=== PATIENT | female | born 1975 | race Caucasian/White ===

== ENCOUNTER 2017-06-09 18:45 | Emergency (ER) | payer BC, OTHER ==
[~2017-06-09] VITALS: Ht 167.6 cm; Wt 62.1 kg
[2017-06-09 18:52] VITALS: TEMP 36.6; Ht 167.6 cm; Wt 62.1 kg
[2017-06-09 19:37] LABS: BASO % 0.4 %; BASO ABS # 0.01 K/uL (0-0.2); COMPLETE YES; HEMATOCRIT 36.7 % (37-47); IG% 0.4 %; LYMPH % 21.2 %; LYMPH ABS # 0.57 K/uL (1.2-3.4); MEAN CELL VOLUME 91.1 fL (80-100); MEAN PLATELET VOLUME 9.6 fL (7.4-10.4); MONO % 19.7 %; NEUT % 58.3 %; PLATELET COUNT 321 K/uL (130-400); RED BLOOD COUNT 4.03 M/uL (4.2-5.4); WHITE BLOOD COUNT 2.69 K/uL (4.8-10.8)
--- NOTE | 2017-06-09 19:42 | DIAGNOSTIC IMAGING REPORT ---
CHEST 2 VIEWS ROUTINE CLINICAL HISTORY: Cough, febrile COMPARISON STUDY: No previous studies for comparison. FINDINGS: The cardiac and mediastinal contours are normal. There is no evidence of focal pulmonary consolidation. There is no evidence of failure. No pleural effusions are visualized.[ IMPRESSION: No active disease in the chest. Electronically signed by: Zana Hall M.D. 06/09/2017 7:41 PM Dictated Date/Time: 06/09/2017 7:41 PM
--- NOTE | 2017-06-09 19:48 | EMERGENCY ROOM VISIT NOTE ---
History First contact with patient: 18:56 Chief Complaint: SINUS CONGESTION/PRESSURE Stated Complaint: SINUS/EAR INFEC, FEVER,CHILLS,SWEATS Nursing Triage Summary: Pt. reports cold symptoms for the last month. She has been being treated for sinus infection and ear infection with doxycycline, but symptoms have not been improving. Reports having night sweats and chills last night. History of Present Illness The patient is a 42 year old female who presents to the Emergency Room via private vehicle with complaints of "sinus/ear infection, fever, chills, sweats" . The patient states that for about a month now she has had sinus congestion and left ear pain. She states that she was started on doxycycline on Saturday feeling much better until yesterday she started not feel well after going shopping. She notes now she has worsening cough, headache, and is concerned she may have pneumonia. She also has had fever, chills and sweats. Her temperature this morning when she awoke was 101.5F. She denies chance of . Review of Systems A complete 10-point Review of Systems was discussed with the patient, with pertinent positives and negatives listed in the History of Present Illness. All remaining Review of Systems questions can be considered negative unless otherwise specified. Past Medical/Surgical History Stomach ulcer Family History No pertinent. Social History Smoking Status: Never Smoker Patient lives locally. Current/Historical Medications Unable to Obtain Active Prescriptions or Reported Meds Physical Exam Vital Signs Date Time Temp Pulse Resp B/P (MAP) Pulse Ox O2 Delivery O2 Flow Rate FiO2 06/09/17 20:51 57 18 123/84 100 Room Air 06/09/17 18:52 36.6 86 18 117/60 97 Room Air Physical Exam VITAL SIGNS - Vital signs and nursing notes were reviewed. Stable. Afebrile. GENERAL -42-year-old female appearing her stated age who is in no acute distress. Nontoxic in appearance. Communicates well with provider and answers questions appropriately. SKIN - Without rashes. No petechial rashes. HEAD - NC/AT. EYES - PERRL with EOMI bilaterally. Sclera anicteric. EARS - No deformities of external structures noted on gross examination bilaterally. No pain elicited with palpation of the tragus bilaterally. External auditory canals without discharge or otorrhea. Tympanic membranes pearly baltazar without retraction or bulging. No fluid or purulent material visualized behind the TM. Handle of malleus, umbo, cone of light, pars tensa/ flaccid all easily visualized. Left ear is slightly erythematous but no evidence of infection. NOSE - Midline and without cyanosis. No epistaxis or purulent drainage noted. MOUTH/OROPHARYNX - Without perioral cyanosis. NECK - Neck with FROM. No meningismus. LUNGS - Chest wall symmetric without accessory muscle use, intercostals retractions, or central cyanosis. Normal vesicular breath sounds CTA B/L. No wheezes, rales, or rhonchi appreciated. Questionable slight wheeze in the left lung. CARDIAC - RRR with S1/S2. No murmur, rubs, or gallops appreciated. EXTREMITIES - No clubbing or peripheral cyanosis. No pretibial edema present. + 5/5 strength noted in UE/LE bilaterally. NEUROLOGIC - Cranial nerves II through XII grossly intact. Sensory intact to light touch throughout. Medical Decision & Procedures ER Provider Diagnostic Interpretation: CHEST 2 VIEWS ROUTINE CLINICAL HISTORY: Cough, febrile COMPARISON STUDY: No previous studies for comparison. FINDINGS: The cardiac and mediastinal contours are normal. There is no evidence of focal pulmonary consolidation. There is no evidence of failure. No pleural effusions are visualized.[ IMPRESSION: No active disease in the chest. Electronically signed by: Zana Hall M.D. 06/09/2017 7:41 PM Dictated Date/Time: 06/09/2017 7:41 PM Laboratory Results 06/09/17 19:25 Red Blood Count 4.03, Mean Corpuscular Volume 91.1, Mean Corpuscular Hemoglobin 30.0, Mean Corpuscular Hemoglobin Concent 33.0, Mean Platelet Volume 9.6, Neutrophils (%) (Auto) 58.3, Lymphocytes (%) (Auto) 21.2, Monocytes (%) (Auto) 19.7, Eosinophils (%) (Auto) 0.0, Basophils (%) (Auto) 0.4, Neutrophils # (Auto ) 1.57, Lymphocytes # (Auto) 0.57, Monocytes # (Auto) 0.53, Eosinophils # (Auto ) 0.00, Basophils # (Auto) 0.01 06/09/17 19:25 Test 06/09/17 19:20 06/09/17 19:25 06/09/17 19:54 Influenza Type A Antigen POS for Influ A (NEG) Influenza Type B Antigen Neg for Influ B (NEG) White Blood Count 2.69 K/uL (4.8-10.8) Red Blood Count 4.03 M/uL (4.2-5.4) Hemoglobin 12.1 g/dL (12.0-16.0) Hematocrit 36.7 % (37-47) Mean Corpuscular Volume 91.1 fL (80-100) Mean Corpuscular Hemoglobin 30.0 pg (25-34) Mean Corpuscular Hemoglobin Concent 33.0 g/dl (32-36) Platelet Count 321 K/uL (130-400) Mean Platelet Volume 9.6 fL (7.4-10.4) Neutrophils (%) (Auto) 58.3 % Lymphocytes (%) (Auto) 21.2 % Monocytes (%) (Auto) 19.7 % Eosinophils (%) (Auto) 0.0 % Basophils (%) (Auto) 0.4 % Neutrophils # (Auto) 1.57 K/uL (1.4-6.5) Lymphocytes # (Auto) 0.57 K/uL (1.2-3.4) Monocytes # (Auto) 0.53 K/uL (0.11-0.59) Eosinophils # (Auto) 0.00 K/uL (0-0.5) Basophils # (Auto) 0.01 K/uL (0-0.2) RDW Standard Deviation 42.3 fL (36.4-46.3) RDW Coefficient of Variation 12.6 % (11.5-14.5) Immature Granulocyte % (Auto) 0.4 % Immature Granulocyte # (Auto) 0.01 K/uL (0.00-0.02) Anion Gap 4.0 mmol/L (3-11) Est Creatinine Clear Calc Drug Dose 67.9 ml/min Estimated GFR () 79.9 Estimated GFR (Non- 69.0 BUN/Creatinine Ratio 11.2 (10-20) Calcium Level 9.3 mg/dl (8.5-10.1) Total Bilirubin 0.2 mg/dl (0.2-1) Aspartate Amino Transf (AST/SGOT) 36 U/L (15-37) Alanine Aminotransferase (ALT/SGPT) 39 U/L (12-78) Alkaline Phosphatase 49 U/L (45-117) Total Protein 8.1 gm/dl (6.4-8.2) Albumin 4.1 gm/dl (3.4-5.0) Globulin 4.0 gm/dl (2.5-4.0) Albumin/Globulin Ratio 1.0 (0.9-2) Urine Color YELLOW Urine Appearance CLEAR (CLEAR) Urine pH 7.0 (4.5-7.5) Urine Specific [place] 1.006 (1.000-1.030) Urine Protein NEG (NEG) Urine Glucose (UA) NEG (NEG) Urine Ketones NEG (NEG) Urine Occult Blood 1+ (NEG) Urine Nitrite NEG (NEG) Urine Bilirubin NEG (NEG) Urine Urobilinogen NEG (NEG) Urine Leukocyte Esterase NEG (NEG) Urine WBC (Auto) 0 /hpf (0-5) Urine RBC (Auto) 0-4 /hpf (0-4) Urine Hyaline Casts (Auto) 1-5 /lpf (0-5) Urine Epithelial Cells (Auto) 0-5 /lpf (0-5) Urine Bacteria (Auto) NEG (NEG) Urine Test NEG (NEG) Medical Decision Patient was seen and evaluated as above. She presents to us today with sinus/ ear congestion, fever chills and sweats. She's been on doxycycline. IV access was initiated, and the above workup was performed. Patient was found to be flu positive. I suspect that she likely had a sinus infection which was clearing up with the doxycycline however when she was out in public recent was shopping I suspect she acquired the flu which I believe is separate from her illness of which she is being treated with doxycycline for. Her white blood cell count is low I believe secondary to the viral illness. There is no evidence of metabolic failure. No concerning anemia. Potassium slightly low at 132. Kidney function appropriate. Urine negative. Urine test negative. Chest x-ray negative. I believe the patient is stable for outpatient management. She looks nontoxic. Patient was educated upon management, educated upon worrisome symptoms which to return, had questions as per the discharge, and was discharged home in good condition. In evaluation treatment this patient following differential diagnoses were entertained: Influenza, meningitis, encephalitis, viral URI, otitis media, among others. Impression Primary Impression: Influenza Departure Information Dispostion Home / Self-Care Condition GOOD Prescriptions Unable to Obtain Active Prescriptions or Reported Meds Referrals No Doctor, Assigned (PCP) Patient Instructions My [facility] Additional Instructions You were seen in the emergency department for fevers, chills, congestion. Chest x-ray shows no pneumonia. Your blood work reveals influenza. I recommend rest, and an adequate fluid intake. This is contagious. Please follow-up with your family doctor for recheck if you're not improving within 10 days. Please return with any new/concerning symptoms.
[2017-06-09 19:58] LABS: BUN/CREATININE RATIO 11.2 (10-20); CALCIUM 9.3 mg/dl (8.5-10.1); POTASSIUM 4.1 mmol/L (3.5-5.1)
[2017-06-09 20:19] LABS: URINE APPEARANCE CLEAR (CLEAR); URINE BILIRUBIN NEG (NEG); URINE COLOR YELLOW; URINE EPITHELIAL CELL AUTO 0-5 /lpf (0-5); URINE NITRITE NEG (NEG); URINE SPECIFIC GRAVITY 1.006 (1.000-1.030); UROBILINOGEN NEG (NEG); ZZUR CULT IF INDIC CLEAN CATCH NO
[2017-06-09 20:21] LABS: MANUAL MICROSCOPIC REQUIRED? NO; REVIEW REQ? NO
[2017-06-09 20:51] VITALS: BP 123/84; PULSE 57; O2SAT 100
== END 2017-06-09 20:55 | disposition home or self-care (01) ==
LOC: C.EDB 18:46 → C.EDA 20:55
DX: J11.1 Influenza due to unidentified influenza virus with other respiratory manifestations (principal); R05 Cough; J32.9 Chronic sinusitis, unspecified; H66.92 Otitis media, unspecified, left ear

== ENCOUNTER 2017-06-13 18:20 | Emergency (ER) | payer BC ==
[~2017-06-13] VITALS: Ht 170.2 cm; Wt 58.4 kg
[2017-06-13 18:23] VITALS: Ht 170.2 cm; Wt 58.4 kg
[2017-06-13] MEDS ORDERED: KETOROLAC TROMETHAMINE 30 MG/ML VIAL IV STA (18:36)
[2017-06-13] MEDS ORDERED: SODIUM CHLORIDE 0.9% 1000ML 1,000 ML IV STA (18:36)
[2017-06-13] MEDS ORDERED: ONDANSETRON INJ 2 MG/ML 2 ML VIAL IV STA (18:40)
--- NOTE | 2017-06-13 19:03 | DIAGNOSTIC IMAGING REPORT ---
CHEST ONE VIEW PORTABLE CLINICAL HISTORY: 42 years-old Female presenting with Continued cough and headache. TECHNIQUE: Portable upright AP view of the chest was obtained. COMPARISON: 06/09/2017. FINDINGS: Cardiomediastinal silhouette normal. Lungs and pleural spaces clear. Osseous structures normal. Upper abdomen normal. IMPRESSION: 1. No acute cardiopulmonary disease. Electronically signed by: Edgardo Tran M.D. 06/13/2017 7:01 PM Dictated Date/Time: 06/13/2017 7:00 PM
[2017-06-13 19:07] LABS: BASO % 0.3 %; BASO ABS # 0.01 K/uL (0-0.2); HEMATOCRIT 36.7 % (37-47); HEMOGLOBIN 12.3 g/dL (12.0-16.0); LYMPH % 28.5 %; LYMPH ABS # 1.09 K/uL (1.2-3.4); MEAN CELL VOLUME 90.2 fL (80-100); MEAN CORPUSCULAR HEMOGLOBIN 30.2 pg (25-34); MEAN CORPUSCULAR HGB CONC 33.5 g/dl (32-36); MEAN PLATELET VOLUME 9.4 fL (7.4-10.4); MONO % 13.3 %; MONO ABS # 0.51 K/uL (0.11-0.59); NEUT % 57.9 %; NEUT ABS # 2.22 K/uL (1.4-6.5); PLATELET COUNT 235 K/uL (130-400); RED CELL DISTRIBUTION WIDTH CV 12.7 % (11.5-14.5); RED CELL DISTRIBUTION WIDTH SD 42.1 fL (36.4-46.3); WHITE BLOOD COUNT 3.83 K/uL (4.8-10.8)
[2017-06-13] MEDS ORDERED: VNTHFA/IN INH (19:24)
[2017-06-13] MEDS ORDERED: GUAI1TAB55 PO (19:24)
[2017-06-13 19:27] LABS: ALBUMIN 3.9 gm/dl (3.4-5.0); CALCIUM 9.1 mg/dl (8.5-10.1); CREATININE 0.71 mg/dl (0.60-1.20); POTASSIUM 3.7 mmol/L (3.5-5.1)
[2017-06-13 19:30] LABS: TOTAL PROTEIN 7.8 gm/dl (6.4-8.2)
--- NOTE | 2017-06-13 20:44 | DIAGNOSTIC IMAGING REPORT ---
SINUSES-MAXILLOFACIAL W/O CLINICAL HISTORY: 42 years-old Female presenting with sinus congestion x 6 weeks. TECHNIQUE: Multidetector CT of the sinuses was performed without the use of intravenous contrast. IV contrast: None. A dose lowering technique was used consistent with the principles of ALARA (as low as reasonably achievable). COMPARISON: None. CT DOSE (mGy.cm): The estimated cumulative dose is 484.33 mGy.cm. 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 [address] mucosal thickening in the left maxillary sinus with an air-fluid level. Aerated secretions in the left anterior ethmoid air cells. Layering fluid also noted in the left sphenoid sinus. Fluid also noted in the left mastoid air cells. No evidence of ostial lysis of the mastoid air cell septations. The left ostiomeatal unit is obstructed by aerated secretions. Similarly the left nasofrontal ethmoidal recess is obstructed by secretions and total thickening. Right ostiomeatal unit and nasal frontoethmoidal recess patent. No dehiscence of the bony optic canals. No sclerosis of the maxillary sinus harris to suggest chronic sinusitis. No periapical lucency at the maxillary teeth. Orbits normal. Mild rightward deviation of the bony nasal septum. Limited intracranial evaluation within normal limits. IMPRESSION: Findings consistent with acute sinusitis of the left maxillary and sphenoid sinuses and left ethmoid air cells. Fluid noted in the left mastoid air cells. No evidence of chronic sinusitis. Electronically signed by: Edgardo Tran M.D. 06/13/2017 8:43 PM Dictated Date/Time: 06/13/2017 8:38 PM
[2017-06-13] MEDS ORDERED: LEVOFLOXACIN 500 MG TAB PO STA (21:00)
[2017-06-13] MEDS ORDERED: LEVO-366 PO (21:02)
[2017-06-13] MEDS ORDERED: ONDANSETRON HOME PACK 4MG OD TAB PO STA (21:03)
[2017-06-13] MEDS ORDERED: LEVOFLOXACIN 250 MG TAB ONE (21:04)
[2017-06-13] MEDS ORDERED: ONDA4TAB10 SL (21:05)
--- NOTE | 2017-06-13 21:05 | EMERGENCY ROOM VISIT NOTE ---
History First contact with patient: 18:27 Chief Complaint: NAUSEA Stated Complaint: NAUSEA Nursing Triage Summary: see triage notes History of Present Illness The patient is a 42 year old female who presents to the Emergency Room via private vehicle with complaints of "nausea". The patient states that she has had a sinus infection for 6 weeks, and is getting worse. She states that she was seen here the day before and diagnosed with the flu. She states that now the nausea is persistent and cannot keep liquids down. She also notes that she has a headache. She called the nurse line for her family practice who referred her here. She states that she has been on doxycycline but recently discontinued this secondary to the stomach upset. She notes that her headache currently is feeling a little bit better. She feels as though she eats food or drinks water she feels nauseous but has not vomited. Review of Systems A complete 10-point Review of Systems was discussed with the patient, with pertinent positives and negatives listed in the History of Present Illness. All remaining Review of Systems questions can be considered negative unless otherwise specified. Past Medical/Surgical History Influenza Family History Noncontributory Social History Smoking Status: Never Smoker Patient lives locally. Current/Historical Medications Scheduled Levofloxacin (Levaquin), 500 MG PO DAILY Ondasetron Odt (Zofran Odt), 4 MG SL Q6H Scheduled PRN Albuterol Hfa (Ventolin Hfa), 2 PUFFS INH Q6H PRN for SOB/Wheezing Guaifenesin Ext Rel (Mucinex Ext Rel), 600 MG PO Q12 PRN for CONGESTION Physical Exam Vital Signs Date Time Temp Pulse Resp B/P (MAP) Pulse Ox O2 Delivery O2 Flow Rate FiO2 06/13/17 21:12 36.8 65 16 112/74 100 06/13/17 21:11 65 16 112/74 100 Room Air 06/13/17 18:23 36.8 64 16 112/65 100 Room Air Physical Exam VITAL SIGNS - Vital signs and nursing notes were reviewed. Stable. Afebrile. GENERAL -42-year-old female appearing her stated age who is in no acute distress. Communicates well with provider and answers questions appropriately. SKIN - Without rashes. No petechial rashes. HEAD - NC/AT. EYES - PERRL with EOMI bilaterally. Sclera anicteric. No hyphema. EARS - No deformities of external structures noted on gross examination bilaterally. No pain elicited with palpation of the tragus bilaterally. External auditory canals without discharge or otorrhea. Tympanic membranes pearly baltazar without retraction or bulging. No fluid or purulent material visualized behind the TM. Handle of malleus, umbo, cone of light, pars tensa/ flaccid all easily visualized. NOSE - Midline and without cyanosis. No epistaxis or purulent drainage noted. MOUTH/OROPHARYNX - Without perioral cyanosis. NECK - Neck with FROM. No meningismus. No nuchal rigidity. LUNGS - Chest wall symmetric without accessory muscle use, intercostals retractions, or central cyanosis. Normal vesicular breath sounds CTA B/L. No wheezes, rales, or rhonchi appreciated. CARDIAC - RRR with S1/S2. No murmur, rubs, or gallops appreciated. NEUROLOGIC - Cranial nerves II through XII grossly intact. Sensory intact to light touch throughout. PSYCH - A&O, and cooperates fully with examiner. Pt is very pleasant and interacts well with examiner. Medical Decision & Procedures ER Provider Diagnostic Interpretation: CHEST ONE VIEW PORTABLE CLINICAL HISTORY: 42 years-old Female presenting with Continued cough and headache. TECHNIQUE: Portable upright AP view of the chest was obtained. COMPARISON: 06/09/2017. FINDINGS: Cardiomediastinal silhouette normal. Lungs and pleural spaces clear. Osseous structures normal. Upper abdomen normal. IMPRESSION: 1. No acute cardiopulmonary disease. Electronically signed by: Edgardo Tran M.D. 06/13/2017 7:01 PM Dictated Date/Time: 06/13/2017 7:00 PM SINUSES-MAXILLOFACIAL W/O CLINICAL HISTORY: 42 years-old Female presenting with sinus congestion x 6 weeks. TECHNIQUE: Multidetector CT of the sinuses was performed without the use of intravenous contrast. IV contrast: None. A dose lowering technique was used consistent with the principles of ALARA (as low as reasonably achievable). COMPARISON: None. CT DOSE (mGy.cm): The estimated cumulative dose is 484.33 mGy.cm. 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 [address] mucosal thickening in the left maxillary sinus with an air-fluid level. Aerated secretions in the left anterior ethmoid air cells. Layering fluid also noted in the left sphenoid sinus. Fluid also noted in the left mastoid air cells. No evidence of ostial lysis of the mastoid air cell septations. The left ostiomeatal unit is obstructed by aerated secretions. Similarly the left nasofrontal ethmoidal recess is obstructed by secretions and total thickening. Right ostiomeatal unit and nasal frontoethmoidal recess patent. No dehiscence of the bony optic canals. No sclerosis of the maxillary sinus harris to suggest chronic sinusitis. No periapical lucency at the maxillary teeth. Orbits normal. Mild rightward deviation of the bony nasal septum. Limited intracranial evaluation within normal limits. IMPRESSION: Findings consistent with acute sinusitis of the left maxillary and sphenoid sinuses and left ethmoid air cells. Fluid noted in the left mastoid air cells. No evidence of chronic sinusitis. Electronically signed by: Edgardo Tran M.D. 06/13/2017 8:43 PM Dictated Date/Time: 06/13/2017 8:38 PM Laboratory Results 06/13/17 19:00 Red Blood Count 4.07, Mean Corpuscular Volume 90.2, Mean Corpuscular Hemoglobin 30.2, Mean Corpuscular Hemoglobin Concent 33.5, Mean Platelet Volume 9.4, Neutrophils (%) (Auto) 57.9, Lymphocytes (%) (Auto) 28.5, Monocytes (%) (Auto) 13.3, Eosinophils (%) (Auto) 0.0, Basophils (%) (Auto) 0.3, Neutrophils # (Auto ) 2.22, Lymphocytes # (Auto) 1.09, Monocytes # (Auto) 0.51, Eosinophils # (Auto ) 0.00, Basophils # (Auto) 0.01 06/13/17 19:00 Test 06/13/17 19:00 White Blood Count 3.83 K/uL (4.8-10.8) Red Blood Count 4.07 M/uL (4.2-5.4) Hemoglobin 12.3 g/dL (12.0-16.0) Hematocrit 36.7 % (37-47) Mean Corpuscular Volume 90.2 fL (80-100) Mean Corpuscular Hemoglobin 30.2 pg (25-34) Mean Corpuscular Hemoglobin Concent 33.5 g/dl (32-36) Platelet Count 235 K/uL (130-400) Mean Platelet Volume 9.4 fL (7.4-10.4) Neutrophils (%) (Auto) 57.9 % Lymphocytes (%) (Auto) 28.5 % Monocytes (%) (Auto) 13.3 % Eosinophils (%) (Auto) 0.0 % Basophils (%) (Auto) 0.3 % Neutrophils # (Auto) 2.22 K/uL (1.4-6.5) Lymphocytes # (Auto) 1.09 K/uL (1.2-3.4) Monocytes # (Auto) 0.51 K/uL (0.11-0.59) Eosinophils # (Auto) 0.00 K/uL (0-0.5) Basophils # (Auto) 0.01 K/uL (0-0.2) RDW Standard Deviation 42.1 fL (36.4-46.3) RDW Coefficient of Variation 12.7 % (11.5-14.5) Immature Granulocyte % (Auto) 0.0 % Immature Granulocyte # (Auto) 0.00 K/uL (0.00-0.02) Anion Gap 4.0 mmol/L (3-11) Est Creatinine Clear Calc Drug Dose 94.2 ml/min Estimated GFR () 120.9 Estimated GFR (Non- 104.3 BUN/Creatinine Ratio 10.7 (10-20) Calcium Level 9.1 mg/dl (8.5-10.1) Total Bilirubin 0.2 mg/dl (0.2-1) Aspartate Amino Transf (AST/SGOT) 33 U/L (15-37) Alanine Aminotransferase (ALT/SGPT) 33 U/L (12-78) Alkaline Phosphatase 44 U/L (45-117) Total Protein 7.8 gm/dl (6.4-8.2) Albumin 3.9 gm/dl (3.4-5.0) Globulin 3.9 gm/dl (2.5-4.0) Albumin/Globulin Ratio 1.0 (0.9-2) Medications Administered Medications (Trade) Dose Ordered Sig/Silvia Route Start Time Stop Time Status Last Admin Dose Admin Sodium Chloride 1,000 ml @ 999 mls/hr Q1H1M STAT IV 06/13/17 18:36 06/13/17 19:36 DC 06/13/17 19:09 999 MLS/HR Ketorolac Tromethamine (Toradol Inj) 30 mg NOW STAT IV 06/13/17 18:36 06/13/17 18:41 DC 06/13/17 19:10 30 MG Ondansetron HCl (Zofran Inj) 4 mg NOW STAT IV 06/13/17 18:40 06/13/17 18:41 DC 06/13/17 19:12 4 MG Levofloxacin (Levaquin Tab) 500 mg NOW STAT PO 06/13/17 21:00 06/13/17 21:02 DC 06/13/17 21:05 500 MG Ondansetron HCl (ZOFRAN ODT 4MG Home Pack) 1 homepack UD STAT PO 06/13/17 21:03 06/13/17 21:04 DC 06/13/17 21:09 1 [facility] Medical Decision Patient was seen and evaluated as above. I did have the privilege of caring for this patient 4 days ago. She was diagnosed with flu. Flu swab was positive at that time. She is nontoxic in appearance. Review was had of the labs from that time. Urine test was negative. Chest x-ray normal. Repeat was done today and was also normal. IV access was established, and the above workup was performed. She was given Toradol, Zofran and normal saline. She was reevaluated and feeling much better. White blood cell count at 3.3. Hemoglobin normal. Her red blood cell count low at 4.07. Metabolic panel reveals sodium low at 134. Creatinine appropriate 0.71. Alkaline phosphatase low at 44. Benefits versus risk of obtaining CT scan of the sinuses was discussed with the patient secondary to her persistent sinusitis for 6 weeks. This does reveal acute sinusitis. She was on doxycycline. She has an allergy to penicillins, supple sports, and sulfa drugs. In that case I will begin Levaquin. She will be given a short course of Zofran for her nausea. I do believe that although both of these are QT prolonging agents, a short course of both an otherwise healthy individual should be okay. Her vital signs here 3 have been normal. She appears stable for outpatient management. She is to follow-up with her family doctor for recheck this coming week and potential ENT if she is not feeling better secondary to the sinusitis. I informed her that she may still felt ill for the next few days because she does have the flu. She was educated upon management, educated upon worrisome symptoms which to return, had questions answered at discharge, and was discharged home in good condition. In evaluation treatment this patient following differential diagnoses were entertained: Sinusitis, influenza, sepsis, pneumonia, among others. Impression Primary Impression: Sinusitis, acute Departure Information Dispostion Home / Self-Care Condition GOOD Prescriptions Ondasetron Odt (ZOFRAN ODT) 4 Mg Tab 4 MG SL Q6H for Nausea, #10 TAB Prov: Galo Galo PA-C 06/13/17 Levofloxacin (Levaquin) 500 Mg Tab 500 MG PO DAILY for 4 Days, #4 TAB Prov: Galo Galo PA-C 06/13/17 Referrals Bonifacio Suarez M.D. (PCP) Casi Hall M.D. Patient Instructions My [facility] Additional Instructions You were seen in the emergency department for your sinus congestion, nausea and headache. You were prescribed Levaquin to be taken Daily. This is an antibiotic. All antibiotics have the potential to cause diarrhea. Stop this medication and contact a medical provider if you were to develop any significant adverse side effects including: wheezing, shortness of breath, passing out, vomiting, or a diffuse rash. Always take antibiotics as directed and COMPLETE the ENTIRE course regardless of the improvement of your symptoms. Zofran 4mg under the tongue every 6 hours for nausea For pain and fever control, you can use the following [id number] medicines (if >12 yo): - Regular strength (325mg/tab) Tylenol (acetaminophen) 2 tabs every 4-6 hours as needed. Do not exceed 12 tablets in a 24 hour period. Avoid taking more than 3 grams (3000 mg) of Tylenol per day. This includes any other sources of acetaminophen you may take on a regular basis. - Regular strength (200 mg/tab) Advil (ibuprofen) 1-2 tabs every 4-6 hours as needed. Do not exceed a dose of 3200 mg per day. - For best results, alternate dosing of Tylenol and Advil. In addition to your prescribed medications, you can also use the following home remedies: Return to the emergency department if your symptoms persist or worsen over the next 2-3 days despite treatment course outlined above. Return to the emergency department if you develop the following symptoms of: inability to swallow solids , liquids, or drool; excessive wheezing or inability to catch your breath; or intractable fever or pain. Follow up with your primary care provider in 2-3 days from today's emergency department visit and ENT if symptoms persist
[2017-06-13 21:12] VITALS: BP 112/74; PULSE 65; TEMP 36.8; O2SAT 100
== END 2017-06-13 21:16 | disposition home or self-care (01) ==
LOC: C.EDB 18:21 → C.EDA 21:16
DX: J32.9 Chronic sinusitis, unspecified (principal)